=== PATIENT | female | born 1945 | race Caucasian/White ===

== ENCOUNTER 2019-11-12 00:35 | Outpatient (CLI) | payer MEDICARE, SELFPAY ==
[2019-11-12 18:06] LABS: SARS-CoV-2 RNA PCR Negative
== END 2019-11-12 00:36 | disposition home or self-care (01) ==
LOC: ANHCOVIDDT 00:35
PROVIDERS: PCP Internal Medicine; Visit Provider Orthopaedic Surgery
DX: Z01.812 Encounter for preprocedural laboratory examination (principal); Z20.828 Contact with and (suspected) exposure to other viral communicable diseases
CPT/HCPCS: 87635; C9803; U0003

== ENCOUNTER 2019-11-14 00:34 | Day surgery (SDC) | payer MEDICARE, SELFPAY ==
[2019-11-04 14:14] VITALS: BMI 29.8
[2019-11-14] VITALS (8 sets, daily range): BP systolic 124–135; BP diastolic 69–81; PULSE 75–86; RESP 12–18; TEMP 36.8–37.1; O2SAT 97–100
--- NOTE | 2019-11-14 07:09 | WPDHPUPDATE1 ---
History and Physical Update Update Date/Time: 11/14/19 07:09 History and Physical has been reviewed, including an updated exam of the patient. There are NO changes in the patient's condition. Risks, benefits, and alternatives have been discussed and questions answered. Patient agrees to proceed with procedure.
[2019-11-14] MEDS: LACTATED RINGERS 1,000 ML 30 ML IV CONT ×2 (08:20→10:50)
--- NOTE | 2019-11-14 08:50 | P.PNAN_ITS ---
Anes - Initial Pre Proc Eval Procedure: Operation Date: 11/14/19 09:45 Proposed Procedures p Left Knee Arthroscopic Partial Medial Meniscectomy - Khanh Acosta MD Date/Time: 11/14/19 08:50 Surgeon: Khanh Acosta MD Pre Op Diagnosis: left knee medial meniscus tear Patient Data Age: 74 Gender: F Height: 1.6 m Weight: 81 kg Last Vital Signs Temp 37.1 C 11/14/19 07:49 Pulse 75 11/14/19 07:49 Resp 18 11/14/19 07:49 BP 125/71 11/14/19 07:49 Pulse Ox 99 11/14/19 07:49 Allergies Allergy/AdvReac Type Severity Reaction Status Date / Time No Known Allergies Allergy Unknown Verified 11/14/19 07:58 Home Medications Medication Instructions Recorded Confirmed Type alprazolam 0.25 mg PO PRN PRN 11/04/19 11/14/19 History calcium carbonate [Calcium 600] 1,200 mg PO DAILY 11/04/19 11/14/19 History cholecalciferol (vitamin D3) 50 mcg PO DAILY 11/04/19 11/14/19 History estradiol 1 patch TRANSDERMAL WEEKLY 11/04/19 11/14/19 History multivitamin,dt-eevv-ldogrgkh 1 tablet PO DAILY 11/04/19 11/14/19 History [Complete Multivitamin] niacin 1,000 mg PO HS 11/04/19 11/14/19 History venlafaxine [Effexor XR] 150 mg PO DAILY 11/04/19 11/14/19 History Patient hx anesthesia problems: none Family hx anesthesia problems: none [facility] Past Medical History Medical History (Updated 11/14/19 @ 07:53 by Tomer Rudolph DO) Anxiety Depression History of panic attacks Osteoarthritis of left knee Surgical History Surgical History (Updated 11/14/19 @ 07:53 by Tomer Rudolph DO) History of hysterectomy Presence of right artificial knee joint Social History Social History Smoking status: Never smoker Anes - Eval Final PreProcedure Day of Procedure 11/14/19 08:50 Patient weight: obese Heart: regular rate and rhythm Lungs: clear to auscultation and normal air movement Airway: Mallampati scale class II Neurological: alert and oriented Last oral intake: >/= 8 hours ASA classification: II Emergent: no Anesthetic plan: proceed Anesthesia type and monitoring: general LMA and standard monitoring Informed Consent: The patient's anesthetic plan and its attendant risks and benefits were discussed with the patient/family/POA. Questions were solicited and answers provided to the satisfaction of the patient/family/POA.
[2019-11-14] MEDS: ceFAZolin 2 GM/D5W 50 ML 2 GM/50 ML BAG IVPB (09:42)
[2019-11-14] MEDS: BUPIVACAINE/EPINEPHRINE 0.5% 30 ML VIAL INFILTRATE (10:26)
--- NOTE | 2019-11-14 16:51 | PM.PROC ---
Procedure Note - Detailed Date of procedure: 11/14/19 Pre-op diagnosis: left knee medial meniscus tear Post-op diagnosis: other (1. Medial and lateral meniscus tears. 2. Degenerative arthritis.) Procedure performed: Arthroscopic partial medial and lateral meniscectomy. Description of procedure: The medial meniscus had an extensive posterior horn meniscus tear. A large split included the subtotal meniscus posteriorly. This was debrided and tapered. There was a long stripe of grade 2/3 chondromalacia along the entire medial aspect of the medial femur. 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 Modest lateral meniscectomy was performed primarily at the anterior horn. Patellofemoral joint showed minimal changes with grade 1 chondromalacia on the patella. Anesthesia: GETA Surgeon: Khanh Acosta MD Estimated blood loss (mL): 5 Complications: None Condition: stable Findings: Procedure Details: The patient was identified and the surgical site confirmed and signed in the preoperative holding area. Antibiotics were started per protocol. She was brought to the operative room and transferred to the OR table. A general anesthetic was administered. Supine position with the operative lower extremity position in the leg adair after placement of a well padded tourniquet. The leg support was lowered and the contralateral limb was supported with a soft bolster. The knee was prepped and draped in the usual sterile fashion. A time-out was performed. The portal sites were marked and infiltrated with 0.5% Marcaine 20 mL. The limb was exsanguinated and the tourniquet inflated to 300 mL Hg. Standard inferolateral and inferomedial portals were established. Inflow was obtained with the saline pump. The camera was introduced. Diagnostic inspection of the joint was accomplished. The medial and lateral menisci were debrided with the arthroscopic shaver and punches until stable. gentle chondroplasty was performed on the medial femoral condyle. The radiofrequency probe was used as needed to stabilize the loose edges of tissue. The arthroscopic instruments were removed. The tourniquet released and wounds closed with subcutaneous 3-0 Monocryl absorbable suture. Steri strips and a sterile dressing were applied. A light elastic wrap was placed. The patient was extubated and brought to the recovery room in stable condition.
== END 2019-11-14 12:47 | disposition home or self-care (01) ==
PROVIDERS: PCP Internal Medicine; Visit Provider Orthopaedic Surgery
PROC: (CPT 29870; principal; 2019-11-14 09:45)
DX: M23.322 Other meniscus derangements, posterior horn of medial meniscus, left knee (principal); M23.342 Other meniscus derangements, anterior horn of lateral meniscus, left knee; M94.262 Chondromalacia, left knee; F41.8 Other specified anxiety disorders; E66.9 Obesity, unspecified; Z68.31 Body mass index [BMI] 31.0-31.9, adult
CPT/HCPCS: 29880; J0690; J2405; J2704; J3010; J7120